=== PATIENT | male | born 1955 ===

== ENCOUNTER 2021-08-29 13:49 | Emergency (ER) | payer SELFPAY ==
[~2021-08-29] VITALS: Ht 182.9 cm; Wt 86.4 kg
[2021-08-29 13:58] VITALS: BP 178/84
== END 2021-08-29 20:29 | disposition left against medical advice (07) ==
LOC: ER 13:49
DX: M79.605 Pain in left leg (principal); M79.652 Pain in left thigh
CPT/HCPCS: 99281